=== PATIENT | male | born 1945 | race Caucasian/White ===

== ENCOUNTER 2017-09-08 07:20 | Outpatient (CLI) | payer MEDICARE ==
--- NOTE | 2017-09-08 11:16 | CT ---
CT ABDOMEN AND PELVIS WITH AND WITHOUT CONTRAST: HISTORY: Crohn's disease. COMPARISON: CT abdomen and pelvis from 2016. FINDINGS: On noncontrast examination, there is moderate atherosclerotic calcification of the aortoiliac system. There are calcifications along the left seminal vesicle. No nephroureteral lithiasis or hydroureteral nephrosis. No secondary evidence of a recently passed s tone. A small fat-containing umbilical hernia. There is abnormally thick-walled loop of distal ileum with lack of normal folds with tethering of the mesentery as well as mesenteric scar formation. No entero colonic or entero-entero fistula are seen. There is increased fibrofatty proliferation of the distal small bowel mesentery. Small fat-containing right paraumbilical ventral hernias. No intrahepatic or extrahepatic biliary di latation. Spleen and pancreas are unremarkable as well as the adrenal glands. IMPRESSION: Findings suggestive of chronic Crohn's disease with acute inflammatory phase superimposed on chronic regenerative stage. This is most prominent at the distal ileum. No evidence of fistula. No sinus tr acts are appreciated. POS: [facility]
[2017-09-08] MEDS ORDERED: Iopamidol 370 76% 100 ML VIAL ONE (12:25)
== END 2017-09-08 07:21 | disposition home or self-care (01) ==
LOC: CT 07:20
PROVIDERS: ATTEND Internal Medicine
DX: K50.00 Crohn's disease of small intestine without complications (principal)
CPT/HCPCS: 74178; 82565

== ENCOUNTER 2017-10-20 11:19 | Outpatient (CLI) | payer MEDICARE ==
--- NOTE | 2017-10-20 12:54 | CT ---
CT OF THE CHEST WITHOUT CONTRAST: Comparison: PET CT 01-26-17 History: Pulmonary nodule in the left lower lobe. Technique: Multiple contiguous axial images were obtained in a CT of the chest without contrast. Saeid nal reformats were performed. FINDINGS: There is a well circumscribed 2.2 cm nodule in the left lower lobe. This is stable compared to the pr ior PET CT. This lesion is low density and has a mean Hounsfield unit value in portions of it of -35 consistent with macroscopic fat. 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 This lesion was also not hypermetabolic on the prior PET CT. No other pulmonary nodules are identified. No pneumotho rax or pleural effusions are seen. The heart is normal in size. No hilar or mediastinal lymphadenopathy are seen. The visualized subdiap hragmatic structures are unremarkable. Degenerative changes are seen in the spine. A spinal stimulati on device is partially visualized. IMPRESSION: 1. Left lower lobe pulmonary nodule has findings consistent with a pulmonary hamartoma which is benig n. POS: [facility]
== END 2017-10-20 11:20 | disposition home or self-care (01) ==
LOC: BICCT 11:19 → CT 11:20
PROVIDERS: ATTEND Internal Medicine Critical Care Medicine
DX: R91.1 Solitary pulmonary nodule (principal)
CPT/HCPCS: 71250

== ENCOUNTER 2017-10-21 12:45 | Outpatient (CLI) | payer MEDICARE ==
[2017-10-21 13:18] LABS: #Eosinphils 0.1 thou/uL (0.0-0.7); #Lymphocytes 0.9 thou/uL (1.20-3.40); #Monocytes 0.4 thou/uL (0.11-0.59); #Neutrophils 4.8 thou/uL (1.40-6.50); %Basophils 0.7 % (0.0-1.0); %Eosinophils 2.2 % (0.0-10.0); %Lymphocytes 14.5 % (21.0-51.0); %Monocytes 6.2 % (0.0-10.0); %Neutrophils 76.5 % (42.0-75.0); Hemoglobin 14.6 g/dL (14.0-18.0); Mean Corpuscular HGB CONC 34.5 g/dL (32.0-36.0); Mean Corpuscular Hemoglobin 32.1 pg (27.0-31.0); Mean Corpuscular Volume 93.1 fl (80.0-94.0); Mean Platelet Volume 5.7 fL (7.4-10.4); Platelet Count 327 thou/uL (130-400); RBC Distribution Width 13.5 % (11.5-14.5); Red Blood Cell (RBC) Count 4.54 mill/uL (4.70-6.10); White Blood Cell (WBC) Count 6.3 thou/uL (4.8-10.8)
[2017-10-21 13:29] LABS: Hemoglobin A1c 5.2 % (4.0-6.0)
[2017-10-21 13:43] LABS: Anion Gap 10 mmol/L (10-20); BUN (Urea Nitrogen) 8 mg/dL (8.4-25.7); Calc. Creatinine Clearance 0 mL/min (70-130); Calcium 8.6 mg/dL (7.8-10.44); Carbon Dioxide 26 mmol/L (23-31); Chloride 104 mmol/L (98-107); Estimated GFR-MDRD Greater than 90; Glucose 116 mg/dL (83-110); Potassium 3.9 mmol/L (3.5-5.1); Sodium 136 mmol/L (136-145)
== END 2017-10-21 12:46 | disposition home or self-care (01) ==
LOC: LABBT 12:45
PROVIDERS: ATTEND Specialist
DX: Z01.818 Encounter for other preprocedural examination (principal)
CPT/HCPCS: 80048; 83036; 85025; 93005; 93010

== ENCOUNTER 2017-10-21 13:00 | Inpatient (IN) | payer MEDICARE ==
[2017-10-27] MEDS ORDERED: Ketorolac Tromethamine 30 MG/ML VIAL ONE (09:23)
[2017-10-27] MEDS ORDERED: Midazolam HCl 2 mg/2 ml Vial ONE (09:28)
[2017-10-27] MEDS ORDERED: Fentanyl 100 MCG/2 ML VIAL ONE ×3 (09:28→14:41)
[2017-10-27] MEDS ORDERED: Meropenem 2 GM in Admixture Fee 1 EACH IVPB SCH (09:30)
[2017-10-27] MEDS ORDERED: Gabapentin 300 MG CAP ONE (09:38)
[2017-10-27] MEDS ORDERED: Meropenem 2 GM in Sodium Chloride 0.9% 100 ML IVPB SCH (09:45)
[2017-10-27] MEDS ORDERED: Fentanyl 250 MCG/5 ML VIAL ONE (10:15)
[2017-10-27] MEDS ORDERED: Lidocaine 2% 10 ML INJ ONE (10:30)
[2017-10-27] MEDS ORDERED: Bupivacaine/Epinephrine 0.25% 30 ML VIAL ONE (10:30)
[2017-10-27] MEDS ORDERED: Bupivacaine HCl 0.5%/Epinephrine 1:200,000/PF 30 ml Vial ONE (11:46)
[2017-10-27] MEDS ORDERED: Promethazine HCl 25 MG/ML VIAL ONE (12:19)
[2017-10-27] MEDS ORDERED: Promethazine HCl 25 MG/ML VIAL SLOW IVP PRN (13:27)
[2017-10-27] MEDS ORDERED: Promethazine HCl 25 MG/ML VIAL IM PRN (13:27)
[2017-10-27] MEDS ORDERED: Ondansetron HCl/PF 4 MG/2 ML Vial IVP PRN (13:27)
[2017-10-27] MEDS ORDERED: hydrALAZINE 20 MG/ML VIAL SLOW IVP PRN (13:39)
[2017-10-27] MEDS ORDERED: Hydrocortisone Sod Succ/PF 100 mg/2 ml Vial ONE (15:07)
[2017-10-27] MEDS ORDERED: Glycopyrrolate 0.2 MG/ML 5 ML SYRINGE ONE (15:07)
[2017-10-27] MEDS ORDERED: Dexamethasone 20 MG/5 ML VIAL ONE (15:07)
[2017-10-27] MEDS ORDERED: PROPOFOL 200 MG/20 ML VIAL ONE (15:07)
[2017-10-27] MEDS ORDERED: Lidocaine 1% PF 5 ML VIAL ONE (15:07)
--- NOTE | 2017-10-27 16:23 | OP ---
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 Supraumbilical ventral hernia of 4 cm above the umbilicus. PROCEDURES: Laparoscopic cholecystectomy. Laparoscopic-assisted mobilization of the right colon wit h open right colectomy with extended small bowel resection 75 cm, primary ileocolostomy stapled anast omosis, incisional hernia repair about the umbilicus and supraumbilical hernia repair, ventral, incor porated into the laparotomy. ANESTHESIA: General anesthesia, TAP blocks, local 0.5% Marcaine with epinephrine, 20 mL ESTIMATED BLOOD LOSS: 200 mL. BLOOD TRANSFUSED: None. Preoperative hemoglobin 14. PROCEDURE IN DETAIL: The patient was taken to the operating room where under general anesthesia and TAP blocks, abdomen was clipped of hair, prepared with ChloraPrep, draped in routine fashion. Local anesthetic infiltrated about the laparoscopic incisions, right subcostal and right subxiphoid. Other suárez, the others not anesthetized using TAP blocks. Right subcostal incision was made, subxiphoid, m idclavicular, and right lateral subcostal and Veress needle initiated pneumoperitoneum to 50 mmHg and 5-mm port was placed in the most lateral right subcostal port sites and a 11-port placed in the righ t subxiphoid. Video laparoscope inserted. There were omental adhesions and then omentum incarcerate d into the recurrent umbilical hernia site and in the supraumbilical ventral hernia site. This was t aken down with blunt dissection using LigaSure and through a left paraumbilical incision. A 5-port p laced through the hernia sac into the abdominal cavity and laparoscopic cholecystectomy undertaken. Fundus of the gallbladder grasped at the cephalad, infundibulum grasped and reflected laterally. Cys tic artery and duct dissected free. Critical view obtained. Cystic artery and duct doubly clipped p roximally, divided, and gallbladder dissected free from liver bed obtaining good hemostasis prior to division of final peritoneal attachments. Gallbladder and stones removed and submitted to Pathology. Good hemostasis ensured with a cautery. Attention was then turned to the right colon mobilization. Right colon was mobilized laparoscopicall y placing left lower quadrant incision and a 5-port placed and left upper quadrant incision made and another 5 port placed. Right colon was mobilized. Terminal ileum mobilized. Right ureter identifie d and kept free of harm, gonadal vessels kept free of harm. The terminal ileum was markedly inflamed and convoluted on itself in too tortuous and mesentery too shortened and inflamed to continue laparo scopically. Thus, wound protector was used. After midline incision was made from the umbilicus to a denver through the old umbilical or area of incisional hernia and the supraumbilical hernia. Incision was carried down to skin and subcutaneous tissue. Abdominal cavity irrigated. Wound protector inser garcia and the right colon brought out into the wound as well as the small bowel. Small bowel was sever aria inflamed and adherent to each other preventing completion of this procedure laparoscopically. Me sentery was severely thickened and inflamed in the involved ileum. The terminal 75 cm ileum were res ected, dividing the mesentery with cautery and LigaSure, dividing the small bowel and a healthy area with a 75 EARLE stapler. A right colon was mobilized keeping the right ureter and gonadal vessels free of harm, as the mid ascending to proximal ascending colon divided with a EARLE-75 stapler. At this po int, the mesentery was serially divided partially with the LigaSure, but mostly requiring clamps due to thickened mesentery. Once this was resected, adjacent to the small bowel, specimen was resected a nd submitted to pathology. Duodenum had been identified and kept free of harm. Mesentery had been s erially divided as described with clamps and suture ligatures applied to the thickened mesentery for hemostasis. At this point, a stapled ileocolonic anastomosis made between the 2 healthy areas of sma ll bowel and colon. A oubd-bp-susp anastomosis created using 75 cm EARLE stapler, closing the common d efect with another 2 fires of the stapler. Mesenteric defect closed with 2-0 silk [id number]. Staple line reinforced with interrupted Lembert sutures of 3-0 silk. Good anastomosis was palpated. Good hemostasis noted. Abdominal cavity irrigated and irrigant evacuated. Hemostasis obtained. Hi s sponge and needle counts were correct. Midline fascia was cleaned of the hernia sacs, which was fr eed from the skin and subcutaneous tissue. Fascia approximated with continuous suture of #1 PDS. Morel bcutaneous tissues irrigated copiously and skin approximated with continuous subcuticular 4-0 Monocry l. 0 Vicryl UR needle used to close the subxiphoid fascia at the 11 mm port site. Our gloves and go wns had been changed once the colon was resected, and as noted above, the wound protector was utilize d. Prevena device placed on the midline incision and Dermabond placed on the laparoscopic incisions. Patient tolerated the procedure well.
[2017-10-27] MEDS: Lactated Ringer's 1,000 ML IV SCH ×2 (17:19→19:47)
[2017-10-27] MEDS: Acetaminophen 1,000 MG in Premix Bag 1 BAG IVPB SCH ×2 (17:28→23:39)
[2017-10-27] MEDS: Ketorolac Tromethamine 30 MG/ML VIAL IVP SCH ×2 (17:28→23:33)
--- NOTE | 2017-10-27 17:49 | CON ---
DATE OF CONSULTATION: 10/27/2017 CONSULTING PHYSICIAN: Dr. Mahmood. REASON FOR CONSULTATION: Postop care. HISTORY OF PRESENT ILLNESS: Mr. Chavira is a 72-year-old male with COPD from tobacco abuse in the past. He is continuing to smoke about a pack per day. He was seen in the office on 10/[address] of a 3-cm lung nodule which is a hamartoma. He was told to quit smoking. He has been doing well with the Trelegy Ellipta. Today, he came in for a laparotomy for treatment of Crohn's disease. I saw him in the Postanesthesia Care Unit. He had somewhat of difficult time extubating in the OR, but is now doing fine in the PACU. PAST MEDICAL HISTORY: 1. COPD. 2. Crohn disease. 3. Tobacco abuse. 4. Carpal tunnel syndrome. 5. Chronic back pain. 6. Thyroid nodules. 7. Hamartoma lung mass. PAST SURGICAL HISTORY: 1. Tonsillectomy and adenoidectomy. 2. Pilonidal cyst excision. 3. Toe surgery secondary to fracture. 4. Rotator cuff repair. 5. Bilateral carpal tunnel release. 6. Incisional hernia repair. 7. EGD/colonoscopy. FAMILY MEDICAL HISTORY: His mother of lung cancer and brain cancer. ALLERGIES: None. MEDICATIONS PRIOR TO ADMISSION: Hydrocodone, pantoprazole, Duragesic patch. He has also been on 10 mg a day prednisone for control of his Crohn's. SOCIAL HISTORY: Two pack per day smoker, drinks rarely. 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 REVIEW OF SYSTEMS: Otherwise, negative. PHYSICAL EXAMINATION: VITAL SIGNS: Temperature 98, O2 saturation 96% on nasal cannula, blood pressure 120/56, pulse 80, respiratory rate 18. GENERAL: He is awake and alert and in no distress. HEENT: Pupils react. Sclerae anicteric. Oropharynx clear. NECK: Without adenopathy or JVD. LUNGS: Clear without wheeze or rhonchi. CARDIAC: S1, S2 regular. No murmur, rub or gallop. ABDOMEN: He has a large midline surgical wound that is covered by wound VAC. EXTREMITIES: No clubbing, cyanosis, or edema. LABORATORY DATA: All labs are pending. ASSESSMENT: 1. Chronic obstructive pulmonary disease. 2. Tobacco abuse. 3. Postop. PLAN: Continue nebulization treatments every 4 hours with EzPAP. I will start Dulera in place of the Trelegy Ellipta since it is not available in the hospital. I will be happy to follow with you. 50 minutes time spent on consult. Of that, >50% spent with the patient at bedside and/or on pts unit MTDD
[2017-10-27] MEDS: Mometasone/Formoterol 120 PUFF INHALER INH SCH (19:16)
[2017-10-27] MEDS ORDERED: Morphine 4 MG/ML VIAL SLOW IVP PRN (19:37)
[2017-10-27] MEDS: Famotidine 20 MG TAB PO SCH (19:46)
[2017-10-27] MEDS: Morphine 4 MG/ML VIAL IV PRN (19:47)
[2017-10-27] MEDS: Enoxaparin Sodium 40 MG/0.4 ML SYRINGE SC SCH (19:52)
[2017-10-27] MEDS ORDERED: Famotidine/PF 20 mg/2ml Vial SLOW IVP SCH (21:00)
[2017-10-28 05:10] LABS: #Lymphocytes 0.6 thou/uL (1.20-3.40); #Monocytes 0.8 thou/uL (0.11-0.59); #Neutrophils 9.1 thou/uL (1.40-6.50); %Basophils 0.1 % (0.0-1.0); %Eosinophils 0.2 % (0.0-10.0); %Lymphocytes 5.3 % (21.0-51.0); %Monocytes 7.5 % (0.0-10.0); %Neutrophils 86.9 % (42.0-75.0); Hemoglobin 11.9 g/dL (14.0-18.0); Mean Corpuscular HGB CONC 33.1 g/dL (32.0-36.0); Mean Corpuscular Volume 93.8 fl (80.0-94.0); Mean Platelet Volume 6.1 fL (7.4-10.4); Platelet Count 267 thou/uL (130-400); RBC Distribution Width 13.3 % (11.5-14.5); Red Blood Cell (RBC) Count 3.84 mill/uL (4.70-6.10); White Blood Cell (WBC) Count 10.4 thou/uL (4.8-10.8)
[2017-10-28 05:38] LABS: ALT (SGPT) 20 U/L (8-55); AST (SGOT) 23 U/L (5-34); Alkaline Phosphatase 59 U/L (40-150); Anion Gap 9 mmol/L (10-20); BUN (Urea Nitrogen) 13 mg/dL (8.4-25.7); Bilirubin, Total 0.8 mg/dL (0.2-1.2); Calc. Creatinine Clearance 90 mL/min (70-130); Carbon Dioxide 24 mmol/L (23-31); Chloride 105 mmol/L (98-107); Estimated GFR-MDRD Greater than 90; Globulin 2.4 g/dL (2.4-3.5); Glucose 150 mg/dL (83-110); Potassium 4.1 mmol/L (3.5-5.1); Protein, Total 5.4 g/dL (5.8-8.1); Sodium 134 mmol/L (136-145)
[2017-10-28] MEDS: Ketorolac Tromethamine 30 MG/ML VIAL IVP SCH ×4 (06:07→23:00)
[2017-10-28] MEDS: Acetaminophen 1,000 MG in Premix Bag 1 BAG IVPB SCH ×3 (06:07→18:28)
[2017-10-28] MEDS: Lactated Ringer's 1,000 ML IV SCH ×3 (06:11→19:38)
[2017-10-28] MEDS: Mometasone/Formoterol 120 PUFF INHALER INH SCH ×2 (06:39→18:40)
[2017-10-28] MEDS: Famotidine 20 MG TAB PO SCH ×2 (07:57→19:38)
[2017-10-28] MEDS ORDERED: traMADol HCl 50 MG TAB PO PRN (08:00)
[2017-10-28] MEDS ORDERED: TRELEGY ELLIPTA INH SCH (09:00)
[2017-10-28] MEDS ORDERED: Non-Formulary Item 1 EACH (Varenicline Tartrate [Chantix] 1 MG) PO SCH (09:00)
[2017-10-28] MEDS ORDERED: Non-Formulary Item 1 EACH (Fluticasone/Umeclidin/Vilanter [Trelegy Ellipta 100-62.5-25] 1 IH SCH (09:00)
[2017-10-28] MEDS: traMADol HCl 50 MG TAB PO PRN ×3 (09:27→23:00)
[2017-10-28] MEDS: Varenicline Tartrate 0.5 MG TAB PO SCH ×2 (09:32→19:39)
--- NOTE | 2017-10-28 10:52 | PRG ---
DATE OF SERVICE: 10/28/2017 SUBJECTIVE: The patient is actually doing very well after his laparotomy yesterday. OBJECTIVE: VITAL SIGNS: On exam, his temperature is 97.9, pulse 91, respirations 18, O2 sat 90%, blood pressure 120/62. HEENT: Unremarkable. NECK: Supple. No JVD. CHEST: Clear. CARDIAC: S1 and S2 regular. ABDOMEN: Low midline wound VAC noted. EXTREMITIES: No clubbing, cyanosis, or edema. LABORATORY DATA: White blood cell count 10, hematocrit 36, and platelet count 267. Sodium 134, pota ssium 4.1, chloride 105, CO2 of 24, BUN 13, creatinine 0.8, and glucose 115. ASSESSMENT: 1. Stable pulmonary status. 2. Chronic obstructive pulmonary disease. 3. Status post laparotomy. PLAN: He can be moved to the surgical floor. We will continue his breathing treatments and is inhal er.
--- NOTE | 2017-10-28 11:46 | PRG ---
DATE OF SERVICE: 10/28/2017 SUBJECTIVE: Jason Soria is in IMCU. He has been transferred to the surgical floor today. Last nigh t despite orders to get him up out of bed into a chair, he refused. He stated he had wires (telemetr y wires) and only set up on the side of the bed. He uses urinal. This morning, I discussed with him the importance of mobility up in a chair four times a day, up in a chair for all meals, ambulating i n hallways. I have told him we will be transferring to the floor where he will not have the wires. He denies any nausea or vomiting. He denies any dyspnea. OBJECTIVE: LUNGS: Clear to auscultation. CARDIAC: Regular rate and rhythm without murmur or gallop. ABDOMEN: Soft, bowel sounds present, nontender, Prevena wound incisional VAC in place to be removed prior to discharge. EXTREMITIES: Unremarkable. He is tolerating clear liquids well. LUNGS: Clear to auscultation, no wheezing. CARDIAC: Regular rate and rhythm without murmur or gallop. ABDOMEN: Soft, bowel sounds. EXTREMITIES: Unremarkable. ASSESSMENT AND PLAN: The patient is doing well. He will be transferred to the surgical unit. He wi ll continue his home nebulizers. We will advance him to full liquids tomorrow as tolerated. We will plan to decrease IV fluids to 50 an hour and saline lock him when he is tolerating liquids. He has been voiding spontaneously and has not had a Pascual this hospitalization. We will convert him to IV O firmev to p.o. Tylenol tomorrow scheduled. We will continue Motrin 600 [address] p[address]o. q.i.d. p.r.n. pain st arting tomorrow after we discontinued his Toradol in the morning. We will initiate Ultram 50 mg 1-2 p.o. q.i.d. p.r.n. pain today. He is advised to consume liquids without a straw to avoid aerophagia. Dr. Arias is covering the next few days.
[2017-10-28] MEDS: Morphine 4 MG/ML VIAL IV PRN (14:03)
[2017-10-28] MEDS: Enoxaparin Sodium 40 MG/0.4 ML SYRINGE SC SCH (19:38)
[2017-10-29 02:46] VITALS: BMI 25.9
[2017-10-29] MEDS: Morphine 4 MG/ML VIAL IV PRN ×2 (03:18→18:33)
[2017-10-29] MEDS: traMADol HCl 50 MG TAB PO PRN ×2 (05:09→10:42)
[2017-10-29] MEDS: Ketorolac Tromethamine 30 MG/ML VIAL IVP SCH (05:09)
[2017-10-29] MEDS: Mometasone/Formoterol 120 PUFF INHALER INH SCH ×2 (07:30→18:34)
[2017-10-29] MEDS ORDERED: Acetaminophen 500 MG TAB PO SCH (08:00)
[2017-10-29] MEDS ORDERED: Ibuprofen 600 MG TAB PO PRN (08:00)
[2017-10-29] MEDS ORDERED: HYDROcodone/Acetaminophen 10/325 mg Tablet PO PRN (08:18)
--- NOTE | 2017-10-29 08:21 | PDOC.GSPN ---
Surgery Progress Note: Subj - Subjective Narrative: c/o pain not controlled with ultram Surgery Progress Note: Obj - Vital signs Vital signs: Vital Signs - Most Recent Temp Pulse Resp BP Pulse Ox 97.9 F 85 18 149/66 H 95 10/29/17 04:04 10/29/17 04:04 10/29/17 04:04 10/29/17 04:04 10/29/17 04:04 - Physical Exam General: no distress Cardiovascular: regular rate and rhythm Respiratory: clear to auscultation Abdomen: soft, non tender, nondistended, positive bowel sounds Surgery Progress Note: Results - Labs Result Diagrams: 10/28/17 04:48 10/28/17 04:48 Surgery Progress Note: A/P - Problem (1) Crohns disease Current Visit: Yes Code(s): K50.90 - CROHN'S DISEASE, UNSPECIFIED, WITHOUT COMPLICATIONS Status: Acute Assessment and Plan: postop day 2 right colectomy, on fulls added norco, probably home tomorrow
[2017-10-29] MEDS: HYDROcodone/Acetaminophen 10/325 mg Tablet PO PRN ×3 (08:40→19:48)
[2017-10-29] MEDS: Varenicline Tartrate 0.5 MG TAB PO SCH ×2 (08:43→19:48)
[2017-10-29] MEDS: Famotidine 20 MG TAB PO SCH ×2 (08:43→19:48)
--- NOTE | 2017-10-29 12:33 | PRG ---
DATE OF SERVICE: 10/29/2017 SUBJECTIVE: The patient is doing well except for abdominal pain. PHYSICAL EXAMINATION: VITAL SIGNS: Temperature 98.1, pulse 85, respiration 16, O2 sat 95% on room air, blood pressure 150/ 67. HEENT: Unremarkable. NECK: No JVD. CHEST: Clear without wheeze or rhonchi. CARDIAC: S1 and S2 regular. ABDOMEN: Soft, slightly tender. EXTREMITIES: No edema. LABORATORY DATA: No labs were obtained today. ASSESSMENT: 1. Status post laparotomy. 2. Stable chronic obstructive pulmonary disease/pulmonary status. PLAN: 1. Continue nebulization treatments and Dulera. 2. Pulmonary status is stable and he can go home when General Surgery feels it is appropriate. I wi ll be around this weekend if help needed.
[2017-10-29] MEDS: Ondansetron HCl/PF 4 MG/2 ML Vial IVP PRN (17:22)
[2017-10-29] MEDS: Enoxaparin Sodium 40 MG/0.4 ML SYRINGE SC SCH (19:48)
[2017-10-29] MEDS: Lactated Ringer's 1,000 ML IV SCH (22:27)
[2017-10-30] MEDS: Ondansetron HCl/PF 4 MG/2 ML Vial IVP PRN (06:10)
[2017-10-30] MEDS: Varenicline Tartrate 0.5 MG TAB PO SCH ×2 (07:45→20:20)
[2017-10-30] MEDS: Famotidine 20 MG TAB PO SCH ×2 (07:45→20:20)
[2017-10-30] MEDS ORDERED: Fentanyl 100 MCG/2 ML VIAL SLOW IVP PRN ×2 (08:32)
[2017-10-30 09:08] LABS: #Eosinphils 0.1 thou/uL (0.0-0.7); #Lymphocytes 0.4 thou/uL (1.20-3.40); #Monocytes 0.2 thou/uL (0.11-0.59); #Neutrophils 5.7 thou/uL (1.40-6.50); %Eosinophils 1.1 % (0.0-10.0); %Monocytes 2.9 % (0.0-10.0); %Neutrophils 89.9 % (42.0-75.0); Hemoglobin 12.7 g/dL (14.0-18.0); Mean Corpuscular HGB CONC 33.5 g/dL (32.0-36.0); Mean Corpuscular Hemoglobin 31.7 pg (27.0-31.0); Mean Corpuscular Volume 94.5 fl (80.0-94.0); Mean Platelet Volume 6.6 fL (7.4-10.4); Platelet Count 286 thou/uL (130-400); RBC Distribution Width 13.3 % (11.5-14.5); Red Blood Cell (RBC) Count 4.01 mill/uL (4.70-6.10); White Blood Cell (WBC) Count 6.3 thou/uL (4.8-10.8)
[2017-10-30 09:11] LABS: Anion Gap 12 mmol/L (10-20); BUN (Urea Nitrogen) 18 mg/dL (8.4-25.7); Calc. Creatinine Clearance 94 mL/min (70-130); Calcium 9.2 mg/dL (7.8-10.44); Carbon Dioxide 32 mmol/L (23-31); Chloride 91 mmol/L (98-107); Estimated GFR-MDRD Greater than 90; Glucose 146 mg/dL (83-110); Potassium 3.6 mmol/L (3.5-5.1); Sodium 131 mmol/L (136-145)
--- NOTE | 2017-10-30 11:07 | PRG ---
DATE OF SERVICE: 10/30/2017 Mr. Soria developed more abdominal distention overnight. He had some tachycardia into the 110s to 1 20s, now back into the 90s. He is complaining of more difficulty breathing. He did vomit twice. PHYSICAL EXAMINATION: VITAL SIGNS: This morning, his blood pressure is 105/58, his pulse is 93, respirations 16, O2 sat 90 % on room air. He is afebrile. He states that he had a small bowel movement yesterday and is passin g small amounts of gas. He voided multiple times. CHEST: He is tachypneic and coarse breath sounds. HEART: Regular rate and rhythm. ABDOMEN: Soft, more moderately distended with less bowel sounds today. Wounds are healing well. LABORATORY DATA: White blood cell count is 6, hemoglobin 12, platelet count is 286. Sodium 131, pot assium 3.6, creatinine 0.79. ASSESSMENT: Postoperative nausea and vomiting, abdominal distention with secondary tachypnea. PLAN: We will place NG tube to lower intermittent wall suction that was done by Maura this morning and there is 1700 out immediately. He feels much better. Continue NG tube, n.p.o. We will restart IV fluids and IV pain medicine.
[2017-10-30] MEDS: D5 1/2 NS w/20 mEq KCL 1,000 ML IV SCH ×2 (11:15→23:31)
--- NOTE | 2017-10-30 11:51 | PRG ---
DATE OF SERVICE: 10/30/2017 SUBJECTIVE: Mr. Soria had to have an NG tube placed this morning. He had 2 liters of stomach zoran nts removed. He says he is breathing much better now. OBJECTIVE: VITAL SIGNS: On exam, temperature is 98.0, pulse 93, respirations 16, O2 sat 90% on room air, pulse 105/58. HEENT: Unremarkable except for the NG tube in place in the left nostril. CARDIAC: S1 and S2, regular. LUNGS: Clear. ABDOMEN: Protuberant with hypoactive bowel sounds. EXTREMITIES: No edema. LABORATORY DATA: White blood cell count 6.3, hematocrit 37.9, platelet count 286. Sodium 131, potas sium 3.6, chloride 91, CO2 of 32, BUN 18, creatinine 0.7, glucose 146. ASSESSMENT: 1. Ileus, postoperative from laparotomy for partial small bowel resection. 2. Chronic obstructive pulmonary disease, which is clinically stable. PLAN: The nurse tells me he is refusing his breathing treatments. Right now, his pulmonary status s eems stable. I will go ahead and switch his nebulizers to standard formulation, but he can use them p.r.n. Hopefully, he can get up and start walking around today.
[2017-10-30] MEDS: Mometasone/Formoterol 120 PUFF INHALER INH SCH ×2 (14:17→18:09)
[2017-10-30] MEDS: Enoxaparin Sodium 40 MG/0.4 ML SYRINGE SC SCH (20:18)
[2017-10-31] MEDS: Mometasone/Formoterol 120 PUFF INHALER INH SCH ×2 (07:29→18:38)
[2017-10-31] MEDS: Famotidine 20 MG TAB PO SCH ×2 (08:42→21:27)
[2017-10-31] MEDS: HYDROcodone/Acetaminophen 10/325 mg Tablet PO PRN ×3 (08:42→17:08)
[2017-10-31] MEDS: Varenicline Tartrate 0.5 MG TAB PO SCH ×2 (08:42→21:28)
--- NOTE | 2017-10-31 09:54 | PRG ---
DATE OF SERVICE: 10/31/2017 SUBJECTIVE: Mr. Soria feels much better after NG tube placement. He is really not passing much gas . His pain is better controlled and he feels better. He feels like he is breathing better. OBJECTIVE: VITAL SIGNS: He is afebrile. Vital signs are stable. ABDOMEN: Soft, less distended. He does have occasional bowel sounds. Wound Prevena is in place. N G output for the last shift was 2750, 400 of urine. He did have a bowel movement. LABORATORY: Yesterday were all within normal limits. ASSESSMENT: Postoperative expected ileus much better with her placement of NG tube. PLAN: Probably needs NG tube for today. Encouraged ambulation. Added some IV pain medicine. Hopef ully, can pull NG tomorrow and restart liquids.
--- NOTE | 2017-10-31 11:50 | PRG ---
DATE OF SERVICE: 10/31/2017 SUBJECTIVE: He is up ambulating in the mcguire. He says he is still having abdominal pain. His breath ing is okay. OBJECTIVE: VITAL SIGNS: Temperature is 98.5, pulse 90, respirations 22, O2 sat 90% on room air, and blood press ure 114/55. HEENT: Unremarkable. NECK: No JVD. CHEST: Clear. CARDIAC: S1 and S2, regular. ABDOMEN: Protuberant. EXTREMITIES: No edema. ASSESSMENT: 1. Status post laparotomy with partial small-bowel resection for Crohn's disease. 2. Ileus. 3. Stable chronic obstructive pulmonary disease. PLAN: Continue p.r.n. nebulization treatments and p.r.n. oxygen.
[2017-10-31] MEDS: D5 1/2 NS w/20 mEq KCL 1,000 ML IV SCH ×2 (12:14→21:33)
[2017-10-31] MEDS: Enoxaparin Sodium 40 MG/0.4 ML SYRINGE SC SCH (21:33)
[2017-11-01 05:01] LABS: #Eosinphils 0.3 thou/uL (0.0-0.7); #Lymphocytes 0.6 thou/uL (1.20-3.40); #Monocytes 0.4 thou/uL (0.11-0.59); #Neutrophils 4.7 thou/uL (1.40-6.50); %Basophils 0.5 % (0.0-1.0); %Eosinophils 4.2 % (0.0-10.0); %Lymphocytes 10.4 % (21.0-51.0); %Monocytes 6.6 % (0.0-10.0); %Neutrophils 78.3 % (42.0-75.0); Hemoglobin 10.8 g/dL (14.0-18.0); Mean Corpuscular Hemoglobin 31.2 pg (27.0-31.0); Mean Corpuscular Volume 94.5 fl (80.0-94.0); Mean Platelet Volume 5.9 fL (7.4-10.4); Platelet Count 329 thou/uL (130-400); Red Blood Cell (RBC) Count 3.47 mill/uL (4.70-6.10)
[2017-11-01 05:16] LABS: Anion Gap 10 mmol/L (10-20); BUN (Urea Nitrogen) 14 mg/dL (8.4-25.7); Calc. Creatinine Clearance 94 mL/min (70-130); Calcium 8.6 mg/dL (7.8-10.44); Carbon Dioxide 35 mmol/L (23-31); Chloride 94 mmol/L (98-107); Estimated GFR-MDRD Greater than 90; Glucose 133 mg/dL (83-110); Potassium 3.1 mmol/L (3.5-5.1); Sodium 136 mmol/L (136-145)
[2017-11-01] MEDS: Mometasone/Formoterol 120 PUFF INHALER INH SCH ×2 (08:18→18:26)
--- NOTE | 2017-11-01 09:07 | PRG ---
DATE OF SERVICE: 11/01/2017 Mr. Soria is doing well, has no complaints. He was to get his NG tube out and start eating again. PHYSICAL EXAMINATION: VITAL SIGNS: Temperature is 98.5, pulse 98, respiration 20, O2 sat 92% on room air, blood pressure 1 14/64. HEENT: Unremarkable except for the NG tube. NECK: No JVD. CHEST: Clear. CARDIAC: S1, S2 regular. ABDOMEN: Softer. Bowel sounds positive. EXTREMITIES: No edema. LABORATORY DATA: White blood cell count 6, hematocrit 32.8, platelet count 329. Sodium 136, potassi um 3.1, chloride 94, CO2 35, BUN 14, creatinine 0.7, glucose 133. ASSESSMENT: 1. Ileus. 2. Status post laparotomy. 3. Chronic obstructive pulmonary disease. PLAN: Increase activity as tolerated. Hopefully can start feeding today. He is getting potassium i n his IV fluids.
[2017-11-01] MEDS: Famotidine 20 MG TAB PO SCH (09:15)
[2017-11-01] MEDS: HYDROcodone/Acetaminophen 10/325 mg Tablet PO PRN (09:16)
[2017-11-01] MEDS: Varenicline Tartrate 0.5 MG TAB PO SCH ×2 (09:21→20:30)
[2017-11-01] MEDS ORDERED: Chloraseptic Spray 180 ml Bottle PO PRN (09:45)
[2017-11-01] MEDS: D5 1/2 NS w/20 mEq KCL 1,000 ML IV SCH ×2 (16:18→20:28)
[2017-11-01] MEDS ORDERED: Potassium Chloride 20 MEQ/100 ML PREMIX BAG IVPB SCH (19:45)
[2017-11-01] MEDS: Enoxaparin Sodium 40 MG/0.4 ML SYRINGE SC SCH (20:29)
--- NOTE | 2017-11-01 20:29 | PRG ---
DATE OF SERVICE: 11/01/2017 SUBJECTIVE: Mr. Soria is doing well today. LABORATORY DATA: His white count is 6, hemoglobin 10.8, potassium 3.1, sodium 136, BUN and creatinin e 14 and 0.79. He reports dark urine. He is urinating without problems. OBJECTIVE: VITAL SIGNS: 97.9 degrees, 98, 16, 117/69. LUNGS: Clear to auscultation. CARDIAC: Regular rate and rhythm without murmur or gallop. ABDOMEN: Soft. Bowel sounds present. He has had bowel movements. Passed flatus. NG tube output i n the last 24 hours is 1300 mL. By the time of this dictation, he was clamped his NG tube for 9 hours and he had 50 mL residual witho ut any nausea or vomiting or abdominal distention. He has continued to pass flatus today. His NG tu be was removed and we will continue n.p.o. until tomorrow morning assessment. We will check abdomina l x-rays tomorrow. We will replace his potassium today.
[2017-11-02] MEDS: D5 1/2 NS w/20 mEq KCL 1,000 ML IV SCH ×2 (04:48→19:35)
[2017-11-02] MEDS: Mometasone/Formoterol 120 PUFF INHALER INH SCH ×2 (07:15→18:37)
[2017-11-02] MEDS: Varenicline Tartrate 0.5 MG TAB PO SCH ×2 (09:23→20:02)
--- NOTE | 2017-11-02 09:28 | PRG ---
DATE OF SERVICE: 11/02/2017 The patient is awake, alert, in no distress. He said he is not short of breath. PHYSICAL EXAMINATION: VITAL SIGNS: Temperature 98.0, pulse 82, respiration 16, O2 sat 93%. HEENT: Unremarkable. NECK: No JVD. CHEST: Clear without wheezing or rhonchi. CARDIAC: S1 and S2 regular. ABDOMEN: Soft. EXTREMITIES: No edema. ASSESSMENT: 1. Status post laparotomy for partial small bowel resection related to Crohn's disease 2. Chronic obstructive pulmonary disease, which is clinically stable. PLAN: Continue nebulizers and oxygen as needed. Hopefully home soon.
--- NOTE | 2017-11-02 09:57 | RAD ---
ACUTE ABDOMINAL SERIES: Date: 11/02/17 HISTORY: Ileus. FINDINGS: CHEST X-RAY: No prior studies are available for comparison. There is a pulmonary nodule seen in the left mid lung zone, noted on recent CT thorax on 10/20/17. Th ere is slight blunting of the left lateral costophrenic angle which could be related to mild pleural and parenchymal scarring or a tiny left pleural effusion. Lungs are otherwise clear. Cardiac silhouet te and pulmonary vasculature are within normal limits. Dorsal column stimulator leads overlie the tho racic spine. Vascular calcifications seen in thoracic aorta. There is bilateral glenohumeral osteoart hropathy. UPRIGHT AND SUPINE VIEWS OF ABDOMEN: Surgical clips overlie the right upper quadrant. Dilated loops of small bowel are seen, predominantly within the left aspect of the abdomen. Definite differential air fluid level is not seen to suggest a mechanical small bowel obstruction, although partial small bowel obstruction is a consideration. Th ere is calcification overlying the left mid abdomen, which was shown to be in the mesentery on recent CT exam on 09/08/17. Vascular calcifications overlie the pelvis with irregular calcification overlyi ng the lower pelvis, which overlies the region of the prostate gland. Vertebroplasty changes of the L 1 vertebral body are noted. There is suggestion of height loss involving the L2 and L3 vertebral bodi es, although this would be better evaluated with lateral views. IMPRESSION: 1. Dilated loops of small bowel. While a definite differential air fluid level is not seen to sugges t a mechanical small bowel obstruction, a partial small bowel obstruction is a differential considera tion. Ileus is also a possibility. 2. Compression fractures of the L2 and L3 vertebral bodies of indeterminate age with vertical height loss present. 3. Pulmonary nodule left mid lung zone. 4. Blunting of left lateral costophrenic angle, which could be related to a tiny left pleural effusi on versus pleural and parenchymal scarring. POS: [facility]
[2017-11-02] MEDS ORDERED: traMADol HCl 50 MG TAB PO PRN (17:26)
[2017-11-02] MEDS ORDERED: Ibuprofen 600 MG TAB PO PRN (17:26)
[2017-11-02] MEDS ORDERED: Acetaminophen 500 MG TAB PO PRN (17:26)
--- NOTE | 2017-11-02 19:21 | PRG ---
DATE OF SERVICE: 11/02/2017 SUBJECTIVE: Mr. Soria is doing better today. He is passing gas and stool. X-rays revealed some di stended bowel loops, but since that x-ray, he continues to pass flatus and stool. He has not had any nausea or vomiting. He is breathing comfortably. OBJECTIVE: VITAL SIGNS: 97.6 degrees, 76, 16, 110/61. LUNGS: Clear to auscultation. CARDIAC: Regular rate and rhythm without murmur or gallop. No pulmonary wheezing. ABDOMEN: Soft. Bowel sounds present. Passed bowel movements, passed pus stool. EXTREMITIES: Unremarkable. LABORATORY DATA: No laboratories today. ASSESSMENT AND PLAN: Status post right colectomy for Crohn's. No evidence of malignancy. Bowel fun ction is resuming. Begin clear liquids, saline lock. Advance to full liquids. Expect discharge theo e in the next 48 hours pending pulmonary status and GI function.
[2017-11-02] MEDS: Enoxaparin Sodium 40 MG/0.4 ML SYRINGE SC SCH (20:02)
[2017-11-03 06:06] LABS: #Eosinphils 0.4 thou/uL (0.0-0.7); #Lymphocytes 0.7 thou/uL (1.20-3.40); #Monocytes 0.4 thou/uL (0.11-0.59); #Neutrophils 4.5 thou/uL (1.40-6.50); %Basophils 0.1 % (0.0-1.0); %Lymphocytes 11.9 % (21.0-51.0); %Monocytes 6.8 % (0.0-10.0); %Neutrophils 74.2 % (42.0-75.0); Mean Corpuscular HGB CONC 33.4 g/dL (32.0-36.0); Mean Corpuscular Hemoglobin 31.5 pg (27.0-31.0); Mean Corpuscular Volume 94.2 fl (80.0-94.0); Platelet Count 418 thou/uL (130-400); RBC Distribution Width 12.9 % (11.5-14.5)
[2017-11-03 06:23] LABS: Anion Gap 8 mmol/L (10-20); BUN (Urea Nitrogen) 8 mg/dL (8.4-25.7); Calc. Creatinine Clearance 103 mL/min (70-130); Calcium 8.5 mg/dL (7.8-10.44); Carbon Dioxide 26 mmol/L (23-31); Chloride 105 mmol/L (98-107); Estimated GFR-MDRD Greater than 90; Glucose 126 mg/dL (83-110); Potassium 3.3 mmol/L (3.5-5.1); Sodium 136 mmol/L (136-145)
[2017-11-03] MEDS: Mometasone/Formoterol 120 PUFF INHALER INH SCH (07:15)
[2017-11-03] MEDS ORDERED: Polyethylene Glycol 3350 17 GM Packet PO SCH (09:00)
--- NOTE | 2017-11-03 09:02 | PRG ---
DATE OF SERVICE: 11/03/2017 The patient is doing better. He wants to go home. PHYSICAL EXAMINATION: VITAL SIGNS: Temperature 97.7, pulse 89, respirations 16, O2 sat 93%, blood pressure 111/71. HEENT: Unremarkable. NECK: No JVD. CHEST: Clear. CARDIAC: S1 and S2 regular. ABDOMEN: Soft. Bowel sounds positive. EXTREMITIES: No edema. LABORATORY DATA: Sodium 136, potassium 3.3, chloride 105, CO2 26, BUN 8, creatinine 0.7, glucose 126 . White blood cell count 6, hematocrit 32.9, platelet count 418. ASSESSMENT: 1. Stable chronic obstructive pulmonary disease. 2. Ileus postop from his partial small bowel resection. This problem appears to be better. PLAN: I would anticipate him going home soon. His respiratory status is stable.
[2017-11-03] MEDS: Varenicline Tartrate 0.5 MG TAB PO SCH (09:11)
[2017-11-03 15:33] VITALS: BP 131/67; TEMP 97.8
--- NOTE | 2017-11-03 17:33 | PRG ---
DATE OF SERVICE: 11/03/2017 SUBJECTIVE: Jason Soria is doing well today. He is tolerating his diet. We advanced him to soft di et. He has had saline locked. OBJECTIVE: LUNGS: Clear to auscultation, no wheezing. CARDIAC: Regular rate and rhythm murmur or gallop. ABDOMEN: Soft, nontender with wounds look good. EXTREMITIES: Unremarkable. ASSESSMENT AND PLAN: Mr. Soria is doing well. Bowel function has resumed. We will advance his t. We will plan discharge home today. He does not require any analgesics. He will follow up in my office in 2-3 weeks. Avoid lifting over 25 pounds for 6 weeks.
--- NOTE | 2017-11-04 09:01 | DIS ---
DATE OF ADMISSION: 10/27/2017 DATE OF DISCHARGE: 11/03/2017 DISCHARGE DIAGNOSES: 1. Crohn's disease, status post extended right colectomy with resection of small bowel involved in Dick maria's. 2. Postoperative ileus requiring NG tube. 3. Chronic obstructive pulmonary disease. DISCHARGE MEDICATIONS: Chantix, Trelegy Ellipta. FOLLOWUP: Follow up in my office in 2-3 weeks. No lifting over 25 pounds. Ultram given for pain in case needed, otherwise Tylenol or Motrin [id number]; MiraLax daily. HISTORY: A 72-year-old male with heavy tobacco abuse, COPD, and saw Dr. Paredes preoperatively. The patient cut down smoking to half a pack a day 2 weeks prior to surgery and no cigarettes for 5 days prior. He underwent bowel prep at home and underwent laparoscopic converted to open right colectomy with extended small bowel resection due to Crohn's refractory to medical treatment. The patient did well postoperatively, but have an NG tube placed with over 1300 mL out. He, within 2 days, convalesc ed and had bowel function. NG tube was removed. He advanced and tolerated his diet, being discharge d home. Follow up in my office in 2-3 weeks. No lifting over 25 pounds for 6 weeks. He did not wan t any analgesics postoperatively, but did take Ultram in case he wanted to fill that.
== END 2017-11-03 16:55 | disposition home or self-care (01) | DRG 330 ==
LOC: SURG A 10-27 08:35 → IMCU/EMU 10-27 17:10 → SJJU 10-28 12:28
PROVIDERS: ADMIT Specialist; ATTEND Specialist
PROC: 0WQF0ZZ Repair Abdominal Wall, Open Approach (ICD-10-PCS; principal; 2017-10-27)
PROC: 0DTF0ZZ Resection of Right Large Intestine, Open Approach (ICD-10-PCS; 2017-10-27)
PROC: 0DBB0ZZ Excision of Ileum, Open Approach (ICD-10-PCS; 2017-10-27)
PROC: 0DTF0ZZ Resection of Right Large Intestine, Open Approach (ICD-10-PCS; 2017-10-27)
DX: K50.012 Crohn's disease of small intestine with intestinal obstruction (principal); K63.3 Ulcer of intestine; K57.12 Diverticulitis of small intestine without perforation or abscess without bleeding; K91.89 Other postprocedural complications and disorders of digestive system; K56.7 Ileus, unspecified; K80.20 Calculus of gallbladder without cholecystitis without obstruction; K43.2 Incisional hernia without obstruction or gangrene; J44.9 Chronic obstructive pulmonary disease, unspecified; D14.30 Benign neoplasm of unspecified bronchus and lung; E04.2 Nontoxic multinodular goiter; Z80.1 Family history of malignant neoplasm of trachea, bronchus and lung; Z80.8 Family history of malignant neoplasm of other organs or systems; Z79.899 Other long term (current) drug therapy; Z79.52 Long term (current) use of systemic steroids; Z87.19 Personal history of other diseases of the digestive system; Z87.39 Personal history of other diseases of the musculoskeletal system and connective tissue; F17.210 Nicotine dependence, cigarettes, uncomplicated; Y83.6 Removal of other organ (partial) (total) as the cause of abnormal reaction of the patient, or of later complication, without mention of misadventure at the time of the procedure; Y92.239 Unspecified place in hospital as the place of occurrence of the external cause; R00.0 Tachycardia, unspecified
CPT/HCPCS: 36415; 36416; 74022; 80048; 80053; 85025; 88304; 88307; 94760; J0131; J0670; J1100; J1650; J1720; J1885; J2001; J2185; J2250; J2270; J2405; J2550; J2704; J3010; J3480; J7050; J7620; S0028

== ENCOUNTER 2018-04-25 09:18 | Outpatient (CLI) | payer MEDICARE ==
--- NOTE | 2018-04-25 10:20 | RAD ---
TWO VIEWS CHEST: Comparison: CT chest, 10-20-17 History: Lung nodule. FINDINGS: Two views of the chest shows a normal sized cardiomediastinal silhouette. A 2.4 cm nodule projecting over the superior aspect of the left lower lobe. No pleural effusions are seen. A spinal stimulation device is seen in the midthoracic spine. IMPRESSION: Left pulmonary nodule. POS: TPC
== END 2018-04-25 09:19 | disposition home or self-care (01) ==
LOC: RAD 09:18
PROVIDERS: ATTEND Internal Medicine Critical Care Medicine
DX: R06.00 Dyspnea, unspecified (principal); R91.1 Solitary pulmonary nodule
CPT/HCPCS: 71046

== ENCOUNTER 2018-07-25 08:40 | Outpatient (CLI) | payer MEDICARE ==
--- NOTE | 2018-07-25 10:03 | RAD ---
FOUR VIEWS LEFT KNEE: Comparison: None. History: Left knee pain for two weeks. FINDINGS: Four views of the left knee shows no evidence of acute fracture or dislocation. Mild joint space narr owing and osteophyte formation is seen in the medial femorotibial compartment and patellofemoral comp artment. No knee effusion is seen. IMPRESSION: Mild left knee osteoarthritis. POS: DARRYL
== END 2018-07-25 08:41 | disposition home or self-care (01) ==
LOC: SCSRAD 08:40
PROVIDERS: ATTEND Family Medicine
DX: M25.562 Pain in left knee (principal); M17.12 Unilateral primary osteoarthritis, left knee

== ENCOUNTER 2018-10-20 09:02 | Outpatient (CLI) | payer MEDICARE ==
--- NOTE | 2018-10-20 09:27 | RAD ---
Chest 2 views HISTORY: Lung nodules. COMPARISON: Multiple previous PET, CT, and radiograph exams. FINDINGS: Cardiac silhouette and pulmonary vasculature are unremarkable. Mediastinum is midline with dorsal column stimulator leads. Lungs remain hyperinflated. The well-circumscribed lobulated predominantly oval soft tissue density mass within the superior segm ent left lower lobe is unchanged in appearance from the previous exams. No new nodules. No pleural fluid or pneumothorax. IMPRESSION: Stable radiographic the left lower lobe nodule. No new abnormalities are apparent.
== END 2018-10-20 09:03 | disposition home or self-care (01) ==
LOC: RAD 09:02
PROVIDERS: ATTEND Internal Medicine Critical Care Medicine
DX: R06.00 Dyspnea, unspecified (principal); R91.1 Solitary pulmonary nodule
CPT/HCPCS: 71046

== ENCOUNTER 2019-03-15 08:43 | Outpatient (CLI) | payer MEDICARE ==
[2019-03-15 12:33] LABS: #Basophils 0.1 thou/uL (0.0-0.2); #Eosinphils 0.3 thou/uL (0.0-0.7); #Lymphocytes 1.8 thou/uL (1.20-3.40); #Monocytes 0.4 thou/uL (0.11-0.59); #Neutrophils 6.1 thou/uL (1.40-6.50); %Basophils 0.8 % (0.0-1.0); %Eosinophils 3.1 % (0.0-10.0); %Lymphocytes 20.9 % (21.0-51.0); %Monocytes 5.1 % (0.0-10.0); %Neutrophils 70.1 % (42.0-75.0); Mean Corpuscular HGB CONC 33.8 g/dL (32.0-36.0); Mean Corpuscular Volume 88.8 fL (78.0-98.0); Mean Platelet Volume 6.8 fL (7.4-10.4); Platelet Count 307 thou/uL (130-400); RBC Distribution Width 12.8 % (11.5-14.5); Red Blood Cell (RBC) Count 4.98 mill/uL (4.70-6.10); White Blood Cell (WBC) Count 8.7 thou/uL (4.8-10.8)
[2019-03-15 12:39] LABS: INR-International Normal Ratio 0.9; Prothrombin Time 12.6 SEC (12.0-14.7)
[2019-03-15 13:08] LABS: Anion Gap 11 mmol/L (10-20); BUN (Urea Nitrogen) 9 mg/dL (8.4-25.7); Calc. Creatinine Clearance 0 mL/min (70-130); Calcium 9.2 mg/dL (7.8-10.44); Carbon Dioxide 25 mmol/L (23-31); Chloride 101 mmol/L (98-107); Estimated GFR-MDRD 86; Glucose 89 mg/dL (83-110); Potassium 4.4 mmol/L (3.5-5.1); Sodium 133 mmol/L (136-145)
--- NOTE | 2019-03-15 20:06 | EKG ---
Test Reason : Blood Pressure : / mmHG Vent. Rate : 076 BPM Atrial Rate : 076 BPM P-R Int : 176 ms QRS Dur : 132 ms QT Int : 384 ms P-R-T Axes : 070 068 056 degrees QTc Int : 432 ms Normal sinus rhythm Right bundle branch block Abnormal ECG When compared with ECG of 21-OCT-2017 13:08, Right bundle branch block is now Present Minimal criteria for Anterior infarct are no longer Present Confirmed by REGINA GUZMAN, SCheri ([id number]) on 03/15/2019 8:06:16 PM Referred By: JONATHAN Confirmed By:DR. Baltazar TAPIA MD
== END 2019-03-15 08:44 | disposition home or self-care (01) ==
LOC: LABBT 08:43
PROVIDERS: ATTEND Orthopaedic Surgery
DX: Z01.818 Encounter for other preprocedural examination (principal); M12.819 Other specific arthropathies, not elsewhere classified, unspecified shoulder
CPT/HCPCS: 80048; 85025; 85610; 87081; 93005; 93010

== ENCOUNTER 2019-03-15 11:15 | Inpatient (IN) | payer MEDICARE ==
[2019-03-23] MEDS ORDERED: Sodium Chloride 0.9% 100 ML ONE (06:21)
[2019-03-23] MEDS ORDERED: Tranexamic Acid 1,000 MG/10 ML VIAL ONE (06:21)
[2019-03-23] MEDS ORDERED: Vancomycin HCl 1.5 GM in Sodium Chloride 0.9% 250 ML 300 ML IVPB SCH (06:30)
[2019-03-23] MEDS ORDERED: Fentanyl 100 MCG/2 ML VIAL ONE ×2 (06:38→09:51)
[2019-03-23] MEDS ORDERED: Midazolam HCl 2 mg/2 ml Vial ONE (06:38)
[2019-03-23] MEDS ORDERED: Albuterol Sulfate 2.5 mg/3 ml Neb NEB SCH (06:45)
[2019-03-23] MEDS ORDERED: Albuterol Sulfate 2.5 mg/3 ml Neb ONE (06:58)
[2019-03-23] MEDS ORDERED: traMADol HCl 50 MG TAB PO PRN ×4 (07:05→07:06)
[2019-03-23] MEDS ORDERED: HYDROcodone/Acetaminophen 10/325 mg Tablet PO PRN ×4 (07:05→07:06)
[2019-03-23] MEDS ORDERED: Zolpidem Tartrate 5 MG TAB PO PRN ×2 (07:06→10:50)
[2019-03-23] MEDS ORDERED: Ondansetron PF 4 MG/2 ML Vial IVP PRN ×2 (07:06→10:50)
[2019-03-23] MEDS ORDERED: Ropivacaine 0.2% 550 ML 550 ML NERVE BLCK SCH (07:06)
[2019-03-23] MEDS ORDERED: Promethazine HCl 25 MG/ML VIAL IM PRN ×3 (07:06→10:50)
[2019-03-23] MEDS ORDERED: Fentanyl 100 MCG/2 ML VIAL SLOW IVP PRN (07:07)
[2019-03-23] MEDS ORDERED: Aspirin 81 mg Enteric Coated Tablet PO SCH (07:15)
[2019-03-23] MEDS ORDERED: Promethazine HCl 25 MG/ML VIAL SLOW IVP PRN (09:22)
[2019-03-23] MEDS ORDERED: Ondansetron HCl/PF 4 MG/2 ML Vial IVP PRN (09:22)
[2019-03-23] MEDS ORDERED: diphenhydrAMINE 25 MG CAP PO PRN (10:50)
[2019-03-23] MEDS ORDERED: diphenhydrAMINE 50 MG/ML VIAL IM/IV PRN (10:50)
[2019-03-23] MEDS ORDERED: Naloxone HCl 0.4 mg/ml Vial IV PRN (10:50)
[2019-03-23] MEDS ORDERED: fentaNYL Citrate/PF 2,000 MCG in Sodium Chloride 0.9% 60 ML IV PRN (10:50)
[2019-03-23] MEDS ORDERED: Ketorolac Tromethamine 30 MG/ML VIAL IVP SCH ×2 (12:00)
--- NOTE | 2019-03-23 13:02 | OP ---
DATE OF PROCEDURE: 03/23/2019 PREOPERATIVE DIAGNOSIS: Rotator cuff arthropathy of the left shoulder. POSTOPERATIVE DIAGNOSIS: Rotator cuff arthropathy of the left shoulder. PROCEDURE PERFORMED: Left reverse total shoulder arthroplasty. CARBURIZING FURNACE OPERATOR: Trevor Guerra PA-C. BLOOD LOSS: 150. SPECIMEN: None. DRAINS: None. COMPLICATIONS: None. IMPLANTS USED: iLumen Tornier 29 mm baseplate, 36 mm centered glenosphere, 5B flex stem, +9 mm polyp with a high offset 0 tray. NARRATIVE REPORT: After appropriate consent was obtained, the patient was placed in the beach chair position with a roll under the left shoulder. The left shoulder was prepped and draped in the usual sterile fashion. I made a standard deltopectoral approach. Cephalic vein was taken medially and preserved; branches were coagulated. The deltopectoral interval was opened. The biceps tendon was identified. The tendon was frayed and in poor condition. I removed the biceps from the groove and tagged it for later repair. It was eventually tagged to soft tissues using #5 Ethibond suture. The subscapularis was taken down. Bone spurs were removed. Subscapularis was tacked for later repair. Using the Tornier guide, a standard cut was performed. I then exposed the glenoid circumferentially. I drilled a central hole and reamed the glenoid. The glenoid baseplate was deployed without difficulty and screws were inserted in the usual technique. Glenosphere was docked without difficulty after irrigation. Attention was turned to the humerus, which was opened with an acetabular and a shaft reamer to the appropriate size. Trial implant was placed and a trial reduction was performed. Trials were removed and irrigation performed. I placed drill holes through the lesser tuberosity to repair the subscapularis. Permanent implant was impacted into place. The shoulder was reduced and confirmed to have good stability throughout a range of motion. Subscapularis was tacked down with a cottony Dacron suture. Additional irrigation was performed. The deltopectoral interval was repaired with #2-0 Vicryl and subcutaneous tissue closed with 2-0 Vicryl. The skin was closed with cam and a sterile dressing was applied. Job ID: [id number]
[2019-03-23] MEDS: Dextrose 5 %-0.45 % NaCl 1,000 ML IV SCH ×2 (13:38→17:55)
[2019-03-23] MEDS: Ketorolac Tromethamine 30 MG/ML VIAL IVP SCH ×3 (13:38→23:27)
[2019-03-23 14:04] VITALS: BMI 26.1
[2019-03-23] MEDS: CEFAZOLIN 2 GM in Premix Bag 1 BAG IVPB SCH ×2 (14:36→23:24)
[2019-03-23] MEDS ORDERED: Vancomycin HCl 1 GM in Premix Bag 1 BAG IVPB SCH (20:00)
[2019-03-23] MEDS: PROVENTIL INHALER 6.7 G (200 INHALATIONS) INH SCH (20:18)
[2019-03-24] MEDS: Ketorolac Tromethamine 30 MG/ML VIAL IVP SCH ×4 (05:32→23:50)
[2019-03-24] MEDS: PROVENTIL INHALER 6.7 G (200 INHALATIONS) INH SCH ×2 (08:14→19:53)
[2019-03-24] MEDS ORDERED: HYDROcodone/Acetaminophen 10/325 mg Tablet PO PRN (11:25)
[2019-03-24] MEDS ORDERED: traMADol HCl 50 MG TAB PO PRN ×2 (11:27→11:28)
[2019-03-24] MEDS ORDERED: Fentanyl 100 MCG/2 ML VIAL SLOW IVP PRN (11:28)
--- NOTE | 2019-03-24 13:40 | PRG ---
DATE OF SERVICE: 03/24/2019 SUBJECTIVE: Jason is a 73-year-old male, who is postop day #1 from left reverse total shoulder arthroplasty. He has had some confusion yesterday evening. He has had discomfort and shortness of breath, and he has prior diagnosis of COPD. OBJECTIVE: VITAL SIGNS: Temperature 98.1, pulse 88, respiratory rate 18 and unlabored, and blood pressure 141/60. GENERAL: He is alert, oriented, responsive, appropriate with examiner. Grossly nonfocal. EXTREMITIES: Left arm is in a sling and he has full digital excursion. Adequate sensation. No strike through noted at the incision or saturation of his dressing is not noted. IMPRESSION: A 73-year-old male, postop day #1 left reverse total shoulder arthroplasty. PLAN: Continue current care. Probable discharge home tomorrow when he is stable. Job ID: [id number]
[2019-03-24] MEDS: HYDROcodone/Acetaminophen 10/325 mg Tablet PO PRN ×3 (13:54→21:48)
[2019-03-24] MEDS: Dextrose 5 %-0.45 % NaCl 1,000 ML IV SCH (15:05)
[2019-03-25] MEDS: HYDROcodone/Acetaminophen 10/325 mg Tablet PO PRN ×4 (02:50→23:07)
[2019-03-25] MEDS: Ketorolac Tromethamine 30 MG/ML VIAL IVP SCH (05:43)
[2019-03-25] MEDS: Dextrose 5 %-0.45 % NaCl 1,000 ML IV SCH ×2 (05:44→20:54)
[2019-03-25] MEDS: PROVENTIL INHALER 6.7 G (200 INHALATIONS) INH SCH ×2 (07:50→19:01)
--- NOTE | 2019-03-25 13:10 | PRG ---
DATE OF SERVICE: 03/25/2019 SUBJECTIVE: Jason is a 73-year-old male, postop day 2 from a reverse left total shoulder arthroplasty. Attempts of removing his Pascual if demonstrated urinary retention, therefore, a Pascual was placed again. This is primary problem today. OBJECTIVE: VITAL SIGNS: Temperature 97.9, pulse 84, respiratory rate 20, blood pressure is 145/72. GENERAL: He is alert and oriented to person, place, time, and situation, grossly nonfocal. Responsive and appropriate with examiner. EXTREMITIES: Visual inspection left upper extremity demonstrates his incision to be clean. No strike through. No erythema. He is neurovascularly intact in left upper extremity. Pascual is placed. IMPRESSION: Urinary retention status post left reverse total shoulder arthroplasty postop day 2. PLAN: I am going to start him on 0.8 Flomax now, remove his Pascual at 5:00 a.m. in the morning and see if he can void with Flomax. Otherwise, we will replace Pascual and send him home with it. Job ID: [id number]
[2019-03-25 23:17] VITALS: BP 135/62; TEMP 98.6
[2019-03-26] MEDS: HYDROcodone/Acetaminophen 10/325 mg Tablet PO PRN (05:08)
[2019-03-26] MEDS: PROVENTIL INHALER 6.7 G (200 INHALATIONS) INH SCH (06:48)
[2019-03-26] MEDS ORDERED: Tamsulosin HCl 0.4 MG CAP PO SCH (09:00)
--- NOTE | 2019-03-26 11:23 | DIS ---
DATE OF ADMISSION: 03/23/2019 DATE OF DISCHARGE: 03/26/2019 ADMISSION DIAGNOSIS: End-stage glenohumeral osteoarthritis, left shoulder. DISCHARGE DIAGNOSES: 1. End-stage glenohumeral osteoarthritis, left shoulder. 2. Urinary retention secondary to benign prostatic hypertrophy. PROCEDURE PERFORMED: Reverse left total shoulder arthroplasty. CONSULTANTS: [facility]. BRIEF CLINICAL HISTORY: Jason is a 73-year-old white male, who was admitted to [facility], underwent the above elective procedure on date of admission without intra, mirela, or postoperative complication. His hospital course was unremarkable and his Pascual was removed on postop day 1, but apparently the patient was unable to void. It was replaced and removed again on postop day 2. Again, the patient had urinary retention, therefore I started him on 0.8 mg of Flomax and removed his Pascual this morning and he has been able to void freely without any discomfort or problems. At the time of discharge, the patient is afebrile, ambulatory without assistance, tolerating regular diet, and voiding without difficulty. His incision is clean and closed without any erythema or strike through. Ponderosa are intact. DISCHARGE MEDICATIONS: Include Flomax 0.4 daily #30 one p.o. daily, one refill and also [place] 1 or 2 q.4 as needed for pain and resumption of home medications. We will be happy to see the patient on an as-needed basis between now and his next scheduled appointment in 2 to 3 weeks. CONDITION ON DISCHARGE: Stable. PROGNOSIS: Good. Job ID: [id number]
== END 2019-03-26 11:38 | disposition home or self-care (01) | DRG 483 ==
LOC: SURG A 03-23 06:10 → SJJU 03-23 10:39 → EDSTATUS 03-23 11:15
PROVIDERS: ADMIT Orthopaedic Surgery; ATTEND Orthopaedic Surgery
PROC: 0RRK00Z Replacement of Left Shoulder Joint with Reverse Ball and Socket Synthetic Substitute, Open Approach (ICD-10-PCS; principal; 2019-03-23)
PROC: 0T9B70Z Drainage of Bladder with Drainage Device, Via Natural or Artificial Opening (ICD-10-PCS; 2019-03-25)
DX: M19.012 Primary osteoarthritis, left shoulder (principal); M75.102 Unspecified rotator cuff tear or rupture of left shoulder, not specified as traumatic; F17.210 Nicotine dependence, cigarettes, uncomplicated; N40.1 Benign prostatic hyperplasia with lower urinary tract symptoms; J44.9 Chronic obstructive pulmonary disease, unspecified; R33.8 Other retention of urine; Z79.899 Other long term (current) drug therapy; Z90.49 Acquired absence of other specified parts of digestive tract
CPT/HCPCS: 94640; 94664; A4306; C1713; J0690; J1885; J2250; J2795; J3010; J3370; J3490; J7611

== ENCOUNTER 2020-06-28 10:47 | Inpatient (IN) | payer MEDICARE ==
[~2020-06-28 10:47] MED LIST: Dexamethasone 20 MG/5 ML VIAL ONE; Glycopyrrolate 0.2 MG/ML 5 ML SYRINGE ONE; Iopamidol-370 76% 500 ML 1 ML ONE; Lidocaine 1% PF 5 ML VIAL ONE; Metoclopramide HCl 10 MG/2 ML VIAL ONE; PHENYLEPHRINE-NS 100 MCG/ML 10 ML SYRINGE ONE; PROPOFOL 200 MG/20 ML VIAL ONE; Rocuronium Bromide 10 MG/ML (10ML VIAL) ONE
[2020-06-28] MEDS ORDERED: Morphine 4 MG/ML VIAL ONE (11:53)
[2020-06-28] MEDS ORDERED: Piperacillin/Tazobactam 4.5 GM VIAL ONE ×2 (11:54→11:56)
[2020-06-28] MEDS ORDERED: Ondansetron PF 4 MG/2 ML Vial ONE (11:54)
[2020-06-28 11:58] LABS: #Basophils 0.1 thou/uL (0.0-0.2); #Eosinphils 0.1 thou/uL (0.0-0.7); #Lymphocytes 1.4 thou/uL (1.20-3.40); #Monocytes 0.5 thou/uL (0.11-0.59); #Neutrophils 5.7 thou/uL (1.40-6.50); %Basophils 0.7 % (0.0-1.0); %Lymphocytes 18.4 % (21.0-51.0); %Monocytes 6.3 % (0.0-10.0); %Neutrophils 73.6 % (42.0-75.0); Hemoglobin 14.9 g/dL (14.0-18.0); Mean Corpuscular HGB CONC 33.2 g/dL (32.0-36.0); Mean Corpuscular Volume 96.3 fL (78.0-98.0); Mean Platelet Volume 6.7 fL (7.4-10.4); Platelet Count 275 thou/uL (130-400); RBC Distribution Width 12.8 % (11.5-14.5); Red Blood Cell (RBC) Count 4.65 mill/uL (4.70-6.10); White Blood Cell (WBC) Count 7.7 thou/uL (4.8-10.8)
[2020-06-28 12:01] LABS: Bilirubin Negative (Negative); Blood, Urine Negative (Negative); Clarity Clear (Clear); Glucose, Urine (Dipstick) Normal (Negative); Ketone, Urine Negative (Negative); Leukocyte Negative Leu/uL (Negative); Nitrite Negative (Negative); Protein, Urine (Dipstick) Negative (Neg-Trace); Specific Gravity, Urine 1.006 (1.002-1.036); Urobilinogen Normal mg/dL (Less than 2); pH, Urine 5.5 (5.0-9.0)
[2020-06-28 12:13] LABS: ALT (SGPT) 22 U/L (8-55); AST (SGOT) 17 U/L (5-34); Albumin 3.9 g/dL (3.4-4.8); Alkaline Phosphatase 102 U/L (40-110); Anion Gap 12 mmol/L (10-20); BUN (Urea Nitrogen) 9 mg/dL (8.4-25.7); Bilirubin, Total 0.9 mg/dL (0.2-1.2); CK (CPK) 79 U/L (30-200); Calc. Creatinine Clearance 0 mL/min (70-130); Carbon Dioxide 29 mmol/L (23-31); Chloride 99 mmol/L (98-107); Globulin 3.5 g/dL (2.4-3.5); Glucose 104 mg/dL (83-110); Lipase 16 U/L (8-78); Potassium 4.2 mmol/L (3.5-5.1); Protein, Total 7.4 g/dL (5.8-8.1); Sodium 136 mmol/L (136-145)
[2020-06-28] MEDS ORDERED: Vancomycin 1 GM/200 ML BAG ONE (12:43)
--- NOTE | 2020-06-28 13:20 | CT ---
EXAM: CT ABDOMEN AND PELVIS HISTORY: Crohn's disease. Pain. COMPARISON: [id number] Procedure: Multiple contiguous axial images were obtained and a CT of the abdomen and pelvis with IV contrast. C oronal reformats were performed. FINDINGS: Lower Chest: Chronic changes Vessels: Atherosclerosis without aneurysm or dissection. Heart: No significant pericardial fluid. There is calcification of the mitral annulus. Abdomen: Portal vein:Patent Gallbladder: Likely absent Liver: within normal limits. Pancreas: within normal limits. Spleen: within normal limits. Adrenals: within normal limits. Kidneys: Symmetric enhancement. No obstructive uropathy. Peritoneum: Trace amount of stranding in the anterior abdominal mesentery. Bowel: Limited evaluation due to the lack of oral contrast administration. No evidence of bowel obstr uction. Ileocecal junction is unremarkable. Surgically absent appendix. Scattered fecal material in a nondistended, nondilated colon. Mesentery and Retroperitoneum: No enlarged mesenteric or retroperitoneal lymph nodes. Abdominal Wall: 2 separate anterior abdominal wall hernias. There is a periumbilical hernia containin g a large segment of mesentery with evidence of mesenteric stranding. The defect measures 2.6 cm. The herniated segment of mesentery measures 11.2 x 4.1 cm. There is a second anterior right paracentr al hernia with a 1 cm defect. Herniated fat measures 5.0 x 2.2 cm. Pelvis: Reproductive Organs: Reproductive organs are unremarkable. Pelvis: No mass, lymphadenopathy, free air or free fluid. Bladder: within normal limits. Bones: within normal limits. Previous vertebroplasty at L1. IMPRESSION: 1. There are 2 anterior abdominal wall hernias containing mesenteric fat. There is stranding of the a bdominal mesentery suggesting mesenteric incarceration. General surgical consultation is recommended Results study conveyed to Dr. Thomas 06/28/2020 at 1:16 PM Code CR
--- NOTE | 2020-06-28 13:44 | RAD ---
Frontal radiograph chest: 06/28/2020 COMPARISON: 04/25/2018 chest radiograph and prior chest CT 10/20/2017 HISTORY: Crohn's disease with abdominal pain, preoperative patient FINDINGS: There is a mass within the mid left lung zone measuring approximately 2.9 cm in craniocauda l dimension, slightly enlarged when compared to prior CT examination performed to 10/20/2017. There is increased linear interstitial density bilaterally. Dorsal column stimulating leads overlie t he mid thoracic spine. No focal consolidation or alveolar edema. Left shoulder arthroplasty noted. IMPRESSION: No acute findings.
[2020-06-28 14:03] LABS: PTT 33.5 sec (22.9-36.1); Prothrombin Time 13.3 sec (12.0-14.7)
[2020-06-28 15:21] LABS: SARS-CoV-2 NAA Rapid Test Not Detected (NotDetected)
[2020-06-28] MEDS ORDERED: Fentanyl 250 MCG/5 ML VIAL ONE (15:29)
[2020-06-28] MEDS ORDERED: Phenylephrine 10 MG/ML VIAL ONE (15:30)
[2020-06-28] MEDS ORDERED: Albumin 5% 500 ML ONE (15:43)
--- NOTE | 2020-06-28 16:18 | HP ---
HISTORY OF PRESENT ILLNESS: Jason Soria is a 75-year-old male patient, 1/2 pack a day smoker with Crohn disease, presents to the emergency room with an incisional hernia that has been present for more than a year. In fact, he has not been able to reduce it at all in the last few weeks, but it began getting red and hurting more. He presents to the emergency room, undergoing evaluation with chest x-ray revealing a dorsal column stimulator and abdomen and pelvis CAT scan demonstrating incarcerated omentum and mesentery without obstruction. Oral contrast was not used. Comment on the CAT scan is that ileocecal valve junction is unremarkable, yet he has undergone a right colectomy. He was noted to have two separate incisional hernias periumbilical, containing a large amount of segmental mesentery with evidence of mesenteric stranding and defect 3.6 cm and herniated segment of mesentery measuring 11.2 x 4 cm and a 2nd anterior right mirela-central hernia with a 1 cm defect. The patient's abdominal wall is very reddened. This is very indurated and painful and cannot be reduced. Plan is for open repair. He understands that without using mesh, risk of recurrence is increased especially considering his smoking habit. We would plan repair today as emergent. ALLERGIES: NONE. TOBACCO: 1/2 to 1 pack per day. ALCOHOL: Rarely. MEDICATIONS: 1. Flomax daily. 2. Advil p.r.n. 3. Hydrocodone 10/325 p.r.n. 4. Colestid. 5. p.o. b.i.d. 6. Albuterol 2 puffs IH b.i.d. He uses [id number] preferred. PAST SURGICAL HISTORY: Umbilical hernia repair on 10/25/2015 without mesh, very small defect. On 10/27/2017, laparoscopic converted to open right colectomy with long segment of small bowel resection 75 cm due to Crohn's. Pathology revealed Crohn's, primary anastomosis, incisional hernia repair about the umbilicus and supraumbilical hernia repair incorporating the laparotomy. Cholecystectomy was also performed due to gallstones. On 03/23/2019, Dr. Paul Vargas performed a left reverse total shoulder arthroplasty, tonsillectomy, pilonidal cyst resection, toe surgery, rotator cuff surgery, bilateral carpal tunnel disease, incisional hernia repair in the past that I performed. EGD and colonoscopy in october 2015. PAST MEDICAL HISTORY: Crohn's disease, tobacco abuse, COPD, polyarthralgias, thyroid nodules. Medications as noted above. The patient takes infusions with Dr. Granda and daily medications for his Crohn's. FAMILY HISTORY: Noncontributory. REVIEW OF SYSTEMS: Noncontributory. Of note, his PET scan 01/16/2017, which is normal. PHYSICAL EXAMINATION: VITAL SIGNS: Blood pressure 140/68, respiratory rate 18, heart rate 76. Afebrile. HEAD, EARS, EYES, NOSE, AND THROAT: Unremarkable. LUNGS: Clear to auscultation. CARDIAC: Regular rate and rhythm. No murmur or gallop. ABDOMEN: Soft. In midline incision, an incarcerated hernia about the umbilicus and lower that I cannot reduce. There is redness, cellulitis about the abdominal wall. EXTREMITIES: Palpable pulses. No ankle edema. ABDOMEN: Soft, otherwise nontender. LABORATORY DATA: White count 7, hemoglobin 14. Basic metabolic profile normal. BUN and creatinine 9 and 0.85. Liver function tests normal. ASSESSMENT AND PLAN: 1. Incarcerated incisional hernia with surrounding cellulitis. It is unfortunate that he presented incarcerated as this cannot be done robotically and mesh should not be used and we will have to repair this without mesh to the best of our ability. Biological mesh could be considered pending findings operatively. Increased risk for recurrent hernia considering tobacco abuse and inability to use mesh in this situation explained. Possibility of returning for robotic hernia repair in the future given. He is also immunosuppressed with his Crohn disease and immunotherapy with Dr. Granda. 2. Crohn disease, treatment with Dr. Granda. Recently had colonoscopy. No active disease. 3. Tobacco abuse. 4. History of right colon resection and cholecystectomy. Job ID: [id number]
[2020-06-28] MEDS ORDERED: Metoclopramide HCl 10 MG/2 ML VIAL ONE (16:23)
[2020-06-28] MEDS ORDERED: Famotidine/PF 20 mg/2ml Vial ONE (16:23)
[2020-06-28] MEDS ORDERED: Bupivacaine 0.25% HCL 30 ML VIAL ONE (17:31)
[2020-06-28] MEDS ORDERED: Lidocaine 0.5%/Epinephrine 1:200,000 50 ml Vial ONE (17:31)
[2020-06-28] MEDS ORDERED: Lidocaine 2% w/Epinephrine 1:200K 20 ML VIAL ONE (17:31)
[2020-06-28] MEDS ORDERED: Ondansetron HCl/PF 4 MG/2 ML Vial IVP PRN (18:02)
[2020-06-28] MEDS ORDERED: Promethazine HCl 25 MG/ML VIAL SLOW IVP PRN (18:02)
[2020-06-28] MEDS ORDERED: HYDROmorphone 2 MG/ML VIAL SLOW IVP PRN (18:02)
[2020-06-28] MEDS ORDERED: Promethazine HCl 25 MG/ML VIAL IM PRN (18:02)
[2020-06-28] MEDS ORDERED: hydrALAZINE 20 MG/ML VIAL SLOW IVP PRN (18:25)
[2020-06-28] MEDS ORDERED: Morphine 4 MG/ML VIAL SLOW IVP PRN (18:25)
[2020-06-28] MEDS ORDERED: Ondansetron ODT 4 MG TAB PO PRN (18:25)
[2020-06-28] MEDS ORDERED: Morphine 2 MG/ML VIAL SLOW IVP PRN (18:25)
[2020-06-28] MEDS ORDERED: Ondansetron PF 4 MG/2 ML Vial IVP PRN (18:25)
[2020-06-28] MEDS ORDERED: Ibuprofen 600 MG TAB PO PRN (18:30)
[2020-06-28] MEDS ORDERED: Acetaminophen 500 MG TAB PO PRN (18:30)
[2020-06-28] MEDS ORDERED: traMADol HCl 50 MG TAB PO PRN (18:38)
[2020-06-28] MEDS ORDERED: Fentanyl 100 MCG/2 ML VIAL ONE ×3 (18:40→19:40)
[2020-06-28] MEDS ORDERED: Ketorolac Tromethamine 30 MG/ML VIAL ONE (18:52)
[2020-06-28] MEDS ORDERED: Ketorolac Tromethamine 30 MG/ML VIAL IVP SCH (19:30)
[2020-06-28] MEDS ORDERED: Ibuprofen 800 MG TAB PO PRN (20:28)
[2020-06-28] MEDS ORDERED: Albuterol 200 PUFF (6.7GM INHALER) INH SCH (21:00)
[2020-06-28] MEDS: Lactated Ringer's 1,000 ML IV SCH (22:17)
[2020-06-28 22:23] VITALS: BMI 35.7
[2020-06-28] MEDS: Amoxicillin/Potassium Clav 500 MG TAB PO SCH (22:36)
[2020-06-28] MEDS ORDERED: Tamsulosin HCl 0.4 MG CAP PO SCH (23:00)
[2020-06-28] MEDS: Famotidine 20 MG TAB PO SCH (23:23)
[2020-06-28] MEDS: Enoxaparin Sodium 40 MG/0.4 ML SYRINGE SC SCH (23:24)
[2020-06-28] MEDS: Ketorolac Tromethamine 30 MG/ML VIAL IVP SCH (23:24)
[2020-06-29] MEDS: Ketorolac Tromethamine 30 MG/ML VIAL IVP SCH ×4 (05:39→23:58)
[2020-06-29] MEDS: Lactated Ringer's 1,000 ML IV SCH ×2 (07:26→15:50)
[2020-06-29] MEDS: Amoxicillin/Potassium Clav 500 MG TAB PO SCH ×2 (09:27→20:12)
[2020-06-29] MEDS: Famotidine 20 MG TAB PO SCH ×2 (09:28→20:12)
[2020-06-29] MEDS: Tamsulosin HCl 0.4 MG CAP PO SCH (09:28)
[2020-06-29] MEDS ORDERED: Polyethylene Glycol 3350 17 GM Packet PO SCH ×2 (10:15→13:00)
--- NOTE | 2020-06-29 12:48 | PDOC.BPN ---
- Brief Progress Note Encounter Date: 06/29/20 Encounter Time: 12:46 Doing well s/p ventral hernia repair and partial omentectomy for strangulated ventral hernia. Postoperative pain well controlled with current regimen. Tolerating full liquid diet, without nausea or vomiting. Denies flatus or bowel movements. Ambulating independently. EXAM: VS: T 97.7 HR 68 BP 138/71 RR 16 General: Alert and oriented, no acute distress, resting comfortably Pulmonary: No dyspnea or difficulty breathing Abdomen: Soft, non-distended, incisions clean, hilaria dressing in place CV: Regular rate and rhythm, palpable distal pulses Extremities: No edema I/O: Not recorded oral intake Multiple voids UOP LABORATORY / IMAGING: Laboratory analysis reviewed and shows a normal white blood cell count of 7.7 and hemoglobin of 14.9 PLAN: Advance to regular diet Initiate bowel regimen Plan for discharge later today or tomorrow morning if tolerates
[2020-06-29] MEDS ORDERED: Nicotine 21 MG PATCH TOP SCH (13:00)
[2020-06-29] MEDS: Albuterol 200 PUFF (6.7GM INHALER) INH SCH (18:38)
[2020-06-29] MEDS: Enoxaparin Sodium 40 MG/0.4 ML SYRINGE SC SCH (20:12)
[2020-06-30] MEDS: Lactated Ringer's 1,000 ML IV SCH (02:15)
[2020-06-30] MEDS: Ketorolac Tromethamine 30 MG/ML VIAL IVP SCH (05:16)
--- NOTE | 2020-06-30 07:25 | PDOC.DS.DS ---
Provider - Provider Date of Admission: 06/28/20 18:07 Date of Discharge: 06/30/20 Admitting Provider: Chad Mahmood MD Primary Care Physician: Danny Porter MD Course - Hospital Course Hospital Course: DATE OF ADMISSION: June 28, 2020 DATE OF DISCHARGE: June 30, 2020 ADMISSION DIAGNOSES: Ventral hernia with strangulated omentum Crohn's disease DISCHARGE DIAGNOSES: Ventral hernia with strangulated omentum Crohn's disease PROCEDURES: Ventral hernia repair with partial omentectomy and primary closure HOSPITAL COURSE: 75-year-old male with a history of Crohn's disease presented with a ventral hernia. His work-up was consistent with strangulated omentum. He was taken to the operating room, where he underwent ventral hernia repair with partial ome ntectomy of the gangrenous omentum. He tolerated the procedure well was transferred to the floor. While on the floor, his diet was advanced to a regular diet which he tolerated prior to discharge. Chemoprophylaxis was accomplished with Lovenox. EMILY hose, SCDs, and early ambulation were also used to prevent DVT. He was restarted on his home medications. On postoperative day #2, his pain was well controlled with an oral regimen, he was ambulating independently, voiding spontaneously, and demonstrated return of bowel function. He was appropriate for discharge DISCHARGE MEDICATIONS: see Discharge Medication Reconciliation Amoxicillin as prescribed Tramadol as prescribed EXAMINATION: General: alert and oreinted, no acute distress, resting comfortably Cardiovascular: regular rate and rhythm Pulmonary: normal respirations, good tidal volume Abdomen: soft, non-tender, non-distended, incisions clean and intact with adrian dressing in place Extremities: no edema, palpable pulses - Labs Lab Results: 06/28/20 11:43 06/28/20 11:43 Abnormal Lab Results - Last 48 hrs 06/28/20 11:43: Albumin/Globulin Ratio 1.1 L 06/28/20 11:43: RBC 4.65 L, MCH 32.0 H, MPV 6.7 L, Lymphocytes % 18.4 L Microbiology - Entire Visit 06/28/20 11:32 Venous blood - Left Arm Blood Culture - Preliminary Specimen has been received and culture in progress. No Growth to date. 06/28/20 11:24 Venous blood - Right Arm Blood Culture - Preliminary Specimen has been received and culture in progress. No Growth to date. - Physical Exam Vitals: Vital Signs (12 hours) Temp Pulse Resp BP BP Pulse Ox 06/30/20 03:20 97.6 F 75 18 130/67 99 06/29/20 23:21 97.6 F 69 18 99/53 L 91 L 06/29/20 20:00 94 L Weight Weight 242 lb Physical Exam: The patient was seen and examined on the day of discharge. Problem - Discharge Plan Assessment: Ventral hernia with strangulated omentum Plan of Treatment: 1. Regular diet 2. Advance activity as tolerated. Avoid heavy lifting and straining until after postoperative clinic evaluation. Ambulate daily. 3. Take medications as instructed. 4. Follow-up 1-2 weeks. Contact surgery clinic for appointment. 5. Okay to remove dressing in 24 to 48 hours 6. Consider eajc-iuw-butthzh stool softener or laxative while taking narcotic pain medication. 7. Contact the surgery clinic or report to the emergency department for p ersistent fevers, increasing pain, persistent nausea or vomiting, Plan - Discharge Medications Prescriptions: Amoxicillin/Potassium Clav [Augmentin] 500 mg PO Q12HR #10 tab traMADol HCl [Ultram] 50 mg PO Q4H PRN #40 tab PRN Reason: Pain Home Medications: Medication Instructions Recorded Confirmed Type Albuterol Sulfate [Ventolin Hfa] 2 puff INH BID 03/15/19 03/15/19 History Colestipol HCl [Colestid] 4 tab PO BID 03/15/19 03/15/19 History Ibuprofen [Advil] 4 tab PO DAILY PRN 03/15/19 03/15/19 History Iv Infusion 03/15/19 History HYDROcodone/Acetaminophen [[place] 1 tab PO Q6HR PRN 03/26/19 03/26/19 History 10-325 Tablet] Tamsulosin HCl [Flomax] 0.4 mg PO DAILY 03/26/19 03/26/19 History Acetaminophen [Tylenol Extra 1,000 mg PO Q6H PRN tab 06/28/20 Rx Strength] Albuterol Sulfate [Ventolin Hfa] 2 puff INH BID 06/28/20 Rx Amoxicillin/Potassium Clav 500 mg PO Q12HR #10 tab 06/28/20 Rx [Augmentin] Ibuprofen [Motrin] 600 mg PO Q6H PRN tab 06/28/20 Rx Ipratropium/Albuterol Sulfate 3 ml NEB Q4H PRN neb 06/28/20 Rx [DuoNeb] Tamsulosin HCl [Flomax] 0.4 mg PO DAILY cap 06/28/20 Rx traMADol HCl [Ultram] 50 mg PO Q4H PRN #40 tab 06/28/20 Rx Allergies: No Known Allergies Allergy (Verified 03/15/19 11:27) - Discharge Instructions Discharge Instructions:: may shower. Remove ADRIAN-wound suction device Wednesday & leave wound open & may shower with open wound washing it with soap & water diet as tolerated. take medications as prescribed. tylenol/motrin over the counter as needed. Activity:: Activity as Tolerated (no lifting > 25#x 6 wks) Nourishment:: Regular Diet - Follow up Plan Referrals: Chad Mahmood MD [Active] - 10 Days Danny Porter MD [Primary Care Provider] - Disposition: HOME Quality - Care Measures CORE MEASURES:: N/A
[2020-06-30] MEDS: Albuterol 200 PUFF (6.7GM INHALER) INH SCH (07:48)
[2020-06-30] MEDS: Amoxicillin/Potassium Clav 500 MG TAB PO SCH (08:22)
[2020-06-30] MEDS: Famotidine 20 MG TAB PO SCH (08:22)
[2020-06-30] MEDS: Tamsulosin HCl 0.4 MG CAP PO SCH (08:22)
[2020-06-30 08:49] VITALS: BP 132/65; TEMP 97.7
[2020-06-30] MEDS ORDERED: Polyethylene Glycol 3350 17 GM Packet PO SCH (09:00)
--- NOTE | 2020-07-01 05:45 | OP ---
DATE OF PROCEDURE: 06/28/2020 PREOPERATIVE DIAGNOSES: Incarcerated/strangulated incisional hernias, supraumbilical and infraumbilical (prior history of right colectomy, extended ileectomy for Crohn disease, primary anastomosis and cholecystectomy), skin cellulitis. POSTOPERATIVE DIAGNOSES: Incarcerated/strangulated incisional hernias, supraumbilical and infraumbilical (prior history of right colectomy, extended ileectomy for Crohn disease, primary anastomosis and cholecystectomy), skin cellulitis. PROCEDURES PERFORMED: Exploratory laparotomy, repair of incisional hernias, excision of strangulated omentum, excision of hernia sac. ANESTHESIA: General anesthesia, local with 0.5% Marcaine 30 mL mixed with 1% Xylocaine with epinephrine 20 mL total volume used. INDICATIONS: The patient presented to the emergency room with more than 1 year history of incisional hernias incarcerated, worsening with pain in the last month with cellulitis in the surrounding area. CAT scan revealed incarcerated omentum without visceral involvement. No history of nausea, vomiting, or bowel dysfunction. DESCRIPTION OF PROCEDURE: The patient was taken to the operating room, where under general anesthesia, Pascual catheter placed at the beginning of the procedure and removed at the end. Incision was made from above the umbilicus skin and subcutaneous tissue midline and dissecting the strangulated omentum, freed down to smaller hernia defects. There was one hernia defect below the umbilicus, another about the umbilicus and at the end of the procedure, when we thought we were done and we did Valsalva, he had another incisional hernia about 2 cm with incarcerated omentum above. Fascia was left intact for possible omentum excised with cautery good hemostasis. The mesh was not used. Hernia sac was dissected free from the subcutaneous tissue and excised. Fascia approximated with interrupted [id number] suture of #1 PDS. Once all hernia defects were closed, mesh was not used because of the surrounding cellulitis, redness of the skin. There was no purulence, however, noted. Good hemostasis noted. Wound irrigated. Skin approximated loosely with cam and ADRIAN suction dressing applied over the staple line. The patient tolerated the procedure well. Job ID: [id number]
--- NOTE | 2020-07-20 22:47 | EKG ---
Test Reason : PRE-OP Blood Pressure : / mmHG Vent. Rate : 065 BPM Atrial Rate : 065 BPM P-R Int : 186 ms QRS Dur : 130 ms QT Int : 432 ms P-R-T Axes : 034 036 019 degrees QTc Int : 449 ms Sinus rhythm with Premature atrial complexes Right bundle branch block Abnormal ECG Confirmed by LEONIE GUZMAN, ASHA ([id number]), restaurant expeditor KAYLEIGH HOWARD ([id number]) on 07/20/2020 10:46:53 PM Referred By: Confirmed By:ASHA HADLEY MD
== END 2020-06-30 10:10 | disposition home or self-care (01) | DRG 354 ==
LOC: ERS 10:47 → SDC 15:47 → SJJU 18:07
PROVIDERS: ADMIT Specialist; ATTEND Specialist
PROC: 0WQF0ZZ Repair Abdominal Wall, Open Approach (ICD-10-PCS; principal; 2020-06-28)
PROC: 0DBU0ZZ Excision of Omentum, Open Approach (ICD-10-PCS; 2020-06-28)
DX: K43.6 Other and unspecified ventral hernia with obstruction, without gangrene (principal); K50.90 Crohn's disease, unspecified, without complications; L03.818 Cellulitis of other sites; F17.210 Nicotine dependence, cigarettes, uncomplicated; Z96.612 Presence of left artificial shoulder joint; J44.9 Chronic obstructive pulmonary disease, unspecified; Z20.822 Contact with and (suspected) exposure to COVID-19; Z90.49 Acquired absence of other specified parts of digestive tract; Z79.51 Long term (current) use of inhaled steroids; Z79.899 Other long term (current) drug therapy
CPT/HCPCS: 71045; 74177; 80053; 81003; 82550; 83605; 83690; 83880; 85025; 85610; 85730; 87040; 93005; 96365; 96375; J1100; J1650; J1885; J2001; J2270; J2370; J2405; J2543; J2704; J2765; J3010; J3370; J7620; P9045; Q9967; S0020; S0028; U0002